=== PATIENT | female | born 1960 | race Caucasian/White ===

== ENCOUNTER 2023-10-07 08:26 | Emergency (ER) | payer MEDICARE, OTHER, SELFPAY ==
[2023-10-07 08:30] VITALS: BP 133/72
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
[2023-10-07] MEDS: VALIUM INJECTION 5 MG IM (09:07)
[2023-10-07] MEDS: LIDOCAINE 4% PATCH 1 PATCH TOPICAL (09:08)
[2023-10-07] MEDS: TORADOL 30 MG IM (09:08)
[2023-10-07 10:30] VITALS: BP 111/70
== END 2023-10-07 10:31 | disposition home or self-care (01) ==
LOC: EMR 08:26
PROVIDERS: EMERGENCY PHYSICIAN Student in an Organized Health Care Education/Training Program; FAMILY PHYSICIAN Student in an Organized Health Care Education/Training Program
DX: S29.011A Strain of muscle and tendon of front wall of thorax, initial encounter (principal); S29.012A Strain of muscle and tendon of back wall of thorax, initial encounter; X50.1XXA Overexertion from prolonged static or awkward postures, initial encounter; F17.200 Nicotine dependence, unspecified, uncomplicated
CPT/HCPCS: 99284; 96372 ×2; 71101

== ENCOUNTER 2023-10-17 09:00 | Emergency (ER) | payer MEDICARE, OTHER, SELFPAY ==
[2023-10-17 09:03] VITALS: BP 138/90
--- NOTE | 2023-10-17 10:27 | ED.GENMED ---
History of Present Illness
General
Chief Complaint: Throat Problem
Past History
Past History
ED Past Medical History: Other
ED Past Surgical History: Other
Social History
Tobacco: Smoker
Alcohol: None
Drug: None
Personal:
Living: with family
Employment: Retired
Family History
Family History: Other
Course
Orders/Labs/Results
Orders:
Orders
10/17/23 09:08
Complete Blood Count/With Diff Urgent
Comprehensive Metabolic Panel Urgent
Prothrombin Time Urgent
Vital Signs
Initial and Last Documented VS:
Initial Vital Signs
Temp Pulse Resp BP Pulse Ox
98.8 F 96 22 138/90 95
10/17/23 09:03 10/17/23 09:03 10/17/23 09:03 10/17/23 09:03 10/17/23 09:03
Last Documented Vital Signs
Temp Pulse Resp BP Pulse Ox
98.8 F 96 22 138/90 95
10/17/23 09:03 10/17/23 09:03 10/17/23 09:03 10/17/23 09:03 10/17/23 09:03
ED Attending Note
-
Portions of this chart may have been created with voice recognition software.� Occasional wrong word or��sound alike� substitutions may have occurred due to the inherent limitations of voice recognition software.
Discharge Plan
Departure
Prescriptions:
No Action
clindamycin HCl 150 MG capsule
450 mg PO TID 10 Days Qty: 60 0RF
cyclobenzaprine 10 mg tablet
10 mg PO Q8H PRN (Reason: muscle spasm) Qty: 10 0RF
lidocaine 5 % adhesive patch,medicated
1 patch topical DAILY PRN (Reason: pain ) Qty: 15 0RF
Rx Instructions:
Apply to affected area remove after 12 hours.
Interventions
Interventions:
*Risk Screen - Suicide Last Done: 10/17/23 09:03
*General Assessment Last Done: 10/17/23 09:03
*Neglect/Abuse Screening Last Done: 10/17/23 09:03
Discharge Date and Time
Print Language: [place]
[2023-10-17 10:40] VITALS: BMI 24.6
[2023-10-17 10:49] VITALS: BP 117/78
[2023-10-17 11:14] LABS: % Basophils 0.7 % (0-2); % Eosinophils 2.6 % (0-6); % Immature Granulocytes 0.1 % (0-0.5); % Lymphocytes 19.8 % (20.5-51.1); % Monocytes 6.1 % (1.7-9.3); % Neutrophils 70.7 % (42.2-75.2); Absolute Basophils 0.1 10^3/uL (0-0.2); Absolute Eosinophils 0.2 10^3/uL (0-0.7); Absolute Lymphocytes 1.4 10^3/uL (1.2-3.4); Absolute Monocytes 0.4 10^3/uL (0.1-0.6); Absolute Neutrophils 4.8 10^3/uL (1.4-6.5); Hematocrit 33.8 % (37.0-47.0); Hemoglobin 11.2 g/dL (12.0-16.0); Mean Corp Hgb Conc. 33.1 g/dL (33.0-37.0); Mean Corpuscular Hgb 27.8 pg (27.0-31.0); Mean Corpuscular Volume 83.9 fL (81.0-99.0); Mean Platelet Volume 8.5 fL (7.4-10.4); Nucleated Red Blood Cells % 0 %; Platelet Count 224 10^3/uL (130-400); Red Blood Cell Count 4.03 10^6/uL (4.20-5.40); Red Cell Dist. Width 13.4 % (11.5-14.5); White Blood Cell Count 6.9 10^3/uL (4.8-10.8)
[2023-10-17 11:27] LABS: ALT (SGPT) 17 U/L (0-35); AST (SGOT) 21 U/L (14-36); Albumin 3.8 g/dl (3.5-5.0); Alkaline Phosphatase 76 U/L (38-126); Blood Urea Nitrogen 15 mg/dl (7-17); Calcium 9.2 mg/dl (8.4-10.2); Carbon Dioxide 25 mmol/L (22-30); Chloride 108 mmol/L (98-107); Estimated Creatinine Clearance 76 ml/min; Glucose 96 mg/dl (70-99); Potassium 3.6 mmol/L (3.5-5.1); Sodium 140 mmol/L (135-145); Total Bilirubin 0.5 mg/dl (0.2-1.3); Total Protein 6.2 g/dl (6.3-8.2); eGFR > 60.00
--- NOTE | 2023-10-17 11:36 | ED.GENMED ---
History of Present Illness
General
Chief Complaint: Throat Problem
Time Seen by Provider: 10/17/23 10:38
History of Present Illness
History of Present Illness:
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 She notes she has had postnasal drip and mild cough however over
the past several days every cough is productive of bloody sputum. Denies any chest pain or dyspnea. No leg swelling or calf cramping. She also notes that this morning she noticed a lump to the right side of the neck that is new. She is currently
receiving [facility]
Past History
Past History
ED Past Medical History: Other
ED Past Surgical History: Other
Social History
Tobacco: Smoker
Alcohol: None
Drug: None
Personal:
Living: with family
Employment: Retired
Family History
Family History: Other
Review of Systems
Review of Systems
Allergies reviewed?: Yes
All Other Systems: ROS reviewed and negative except as documented in HPI and ROS
Phy Exam
Physical Exam
Physical Exam:
GEN: Well appearing, NAD, WDWN
Eyes: PERRLA, EOMs intact, no scleral icterus
HENT: NCAT, oral mucosa moist. No obvious evidence for oropharyngeal bleeding. 1.5 to 2 cm palpable mass to the right anterior cervical chain likely pathologic adenopathy, no crepitus
Lungs: Normal respiratory effort, faint crackles in the right base
Cardiac: RRR, no M/R/G, no peripheral edema. Radial pulses 2+ bilat
Abdomen: S, NT, ND, NABS, no masses or hepatosplenomegaly
Neuro: AO x 3
MSK: No gross deformity or ecchymosis. No edema. No digital clubbing
Skin: No rashes, petechiae. Normal color, no pallor or jaundice.
Psych: Calm, cooperative, proper hygiene
Course
Orders/Labs/Results
Orders:
Orders
10/17/23 10:52
CT Chest With Iv Contrast Urgent
Comment:
Reason For Exam: hemoptysis, hx of oral CA
CT Neck With Iv Contrast Urgent
Comment:
Reason For Exam: R neck mass, prior oropharyx CA
10/17/23 10:57
Complete Blood Count/With Diff Urgent
Comprehensive Metabolic Panel Urgent
Prothrombin Time Urgent
10/17/23 11:07
Heparin Pf [Heparin Lock Flush] 500 unit .ROUTE .STK-MED ONE
Abnormal Lab Results
10/17/23
10:57
RBC 4.03 L 10^6/uL
(4.20-5.40)
Hgb 11.2 L g/dL
(12.0-16.0)
Hct 33.8 L %
(37.0-47.0)
Lymphocytes % 19.8 L %
(20.5-51.1)
Chloride 108 H mmol/L
(98-107)
Creatinine 0.4 L mg/dL
(0.6-1.0)
Total Protein 6.2 L g/dl
(6.3-8.2)
10/17/23 10:57
10/17/23 10:57
Vital Signs
Initial and Last Documented VS:
Initial Vital Signs
Temp Pulse Resp BP Pulse Ox
98.8 F 96 22 138/90 95
10/17/23 09:03 10/17/23 09:03 10/17/23 09:03 10/17/23 09:03 10/17/23 09:03
Last Documented Vital Signs
Temp Pulse Resp BP Pulse Ox
98.8 F 83 18 138/86 93
10/17/23 09:03 10/17/23 14:07 10/17/23 14:07 10/17/23 14:07 10/17/23 14:07
MDM/Problems Addressed
MDM/Problems Addressed:
Because the patient's multisystems most likely the right base pneumonia, she is not hypoxic and has normal vital signs thus it is reasonable to treat as an outpatient. Neck swelling infiltrates identified to be a mass, uncertain if this was noted
to the patient she received her oncologic care at [facility]. I provided the patient with CT scan report and disc and also contact the patient's oncology office, spoke with the clinical staff for Dr. Mariana Rincon, with whom the patient has a
follow-up appointment next Monday, inform them of the test results from the ER
*Critical Care Note
Total Time (30-74mins, 75-104mins- exclusive of procedures): Not Applicable
ED Attending Note
-
Portions of this chart may have been created with voice recognition software.� Occasional wrong word or��sound alike� substitutions may have occurred due to the inherent limitations of voice recognition software.
Discharge Plan
Departure
Patient Disposition: Home (Routine Discharge)
Date of Disposition: 10/17/23
Time of Disposition: 13:44
Patient with high blood pressure during this ER visit?: No
Discharge Problem:
Right lower lobe pneumonia, Mass in neck
Instructions: Pneumonia, Adult (DC)
Prescriptions:
New
cefdinir 300 mg capsule
300 mg PO Q12H Qty: 14 0RF
No Action
clindamycin HCl 150 MG capsule
450 mg PO TID 10 Days Qty: 60 0RF
cyclobenzaprine 10 mg tablet
10 mg PO Q8H PRN (Reason: muscle spasm) Qty: 10 0RF
lidocaine 5 % adhesive patch,medicated
1 patch topical DAILY PRN (Reason: pain ) Qty: 15 0RF
Rx Instructions:
Apply to affected area remove after 12 hours.
Referrals:
UNKNOWN - PT DOES,NOT KNOW [Family Provider] -
Activity Restrictions/Additional Instructions:
Your CT scan shows a new mass in the right side of the neck that is likely related to your prior oral cancer. Please follow-up with your oncologist regarding this finding. I have provided you with discs as well as reports of the images to
facilitate your follow-up
Interventions
Interventions:
*Risk Screen - Suicide Last Done: 10/17/23 09:03
*General Assessment Last Done: 10/17/23 09:03
*Neglect/Abuse Screening Last Done: 10/17/23 09:03
*Nursing Disposition Last Done: 10/17/23 14:08
ED-EENT Assessment Last Done: 10/17/23 10:55
ED- Pulmonary Assessment Last Done: 10/17/23 10:50
Discharge Date and Time
Discharge Date/Time: 10/17/23 14:09
Print Language: [place]
[2023-10-17 12:26] VITALS: BP 140/85
[2023-10-17 12:51] LABS: INR 1.09; PT 13.9 Sec (11.4-14.6)
[2023-10-17 14:07] VITALS: BP 138/86
== END 2023-10-17 14:09 | disposition home or self-care (01) ==
LOC: EMR 09:00
PROVIDERS: Emergency Medicine; EMERGENCY PHYSICIAN Emergency Medicine
DX: J18.9 Pneumonia, unspecified organism (principal); R22.1 Localized swelling, mass and lump, neck; C10.9 Malignant neoplasm of oropharynx, unspecified; F17.200 Nicotine dependence, unspecified, uncomplicated; Z88.0 Allergy status to penicillin
CPT/HCPCS: 99285; 70491; 71260; 80053; 85025; 85610; Q9967